=== PATIENT | male | born 1955 | race Two or more races ===

== ENCOUNTER → 2018-02-27 | Outpatient (CLI) | payer OTHER ==
--- NOTE | 2018-02-27 14:32 | KCIC ---
MRI study of the left knee without contrast Clinical indications: Left knee pain and swelling just below the patella that is painful with walking. COMPARISON: None available. TECHNIQUE: Noncontrast MRI sequences of the left knee were performed in all 3 planes. FINDINGS: The anterior and posterior cruciate ligaments are intact. The quadriceps and patellar tendons are intact. There is an inferior articular surface tear of the posterior horn of the lateral meniscus. The anterior horn and body of the lateral meniscus are abnormally truncated. The medial meniscus is intact. The medial collateral ligament is intact and no meniscocapsular separation is seen. The lateral collateral ligament complex and iliotibial band and popliteus tendon are intact. No posterior lateral corner injury is seen. No bone contusion or fracture or marrow infiltrative process is seen. Moderate chondromalacia of the medial and lateral tibial femoral joint compartments is seen. There is degenerative subchondral cyst formation of the lateral femoral condyle. The patella is normally aligned. Severe chondromalacia patellae of the lateral patellar facet extending to the apex is seen with linear defects and subchondral cyst formation and bone marrow edema. There is mild chondromalacia patellae of the medial patellar facet. The trochlear articular cartilage is unremarkable. The medial and lateral retinacular ligaments are intact. No significant knee joint effusion is seen. No loose body is evident. No muscle edema is evident. No Alvarado's cyst is seen. IMPRESSION: Abnormal lateral meniscus. Tear of the posterior horn of the lateral meniscus. 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 Severe chondromalacia patellae. Electronically signed by: Geovany Fairchild MD (02/27/2018 2:29 PM) [place] [id number]
== END | disposition home or self-care (01) ==
LOC: KCIC MRI 09:16
PROVIDERS: ATTEND Physician Assistant
DX: S83.282A Other tear of lateral meniscus, current injury, left knee, initial encounter (principal); M22.42 Chondromalacia patellae, left knee; X58.XXXA Exposure to other specified factors, initial encounter; Y93.89 Activity, other specified; Y92.89 Other specified places as the place of occurrence of the external cause; Y99.8 Other external cause status
CPT/HCPCS: 73721